=== PATIENT | female | born 1985 | race Caucasian/White ===

== ENCOUNTER 2022-04-19 05:35 | Inpatient (IN) ==
--- NOTE | 2022-04-11 12:31 | Anesthesiology Consultation ---
Date of Service April 11, 2022 Assessment & Plan (1) Encounter for pre-operative examination: - COVID screening: Per political reporter on 04/11/2022: Travel screen negative, no known COVID-19 positive contacts or current COVID-19 related symptoms in past 2 weeks. Pt vaccinated. To surgeon's discretion if pre-op COVID testing needed. 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 History Surgery Operation Date: 04/19/22 09:00 Proposed Procedures p Section in LD (Delivery of Baby Through Abdominal Incision) - Deborah Aranda MD, FACOG Height/Weight Height: 5 ft 2 in Weight: 74.389 kg Allergies Allergy/AdvReac Type Severity Reaction Status Date / Time benzoyl peroxide Allergy HIVES Verified 04/11/22 10:43 bupropion Allergy ?HIVES Verified 04/11/22 10:43 Medications Home Medications Medication Instructions Recorded Confirmed Last Taken prenat.vits,vega,pmr-zmgs-akjtd 1 tab PO HS 04/03/21 04/11/22 Unknown breast pump #1 ea 10/24/21 04/11/22 Unknown aspirin 81 mg chewable tablet 81 mg PO HS 11/27/21 04/11/22 Unknown docusate sodium [Colace] 1 cap PO QAM PRN Constipation 01/21/22 04/11/22 Unknown diphenhydramine HCl 50 mg capsule 25 - 50 mg PO HS 04/11/22 04/11/22 Unknown (Unisom SleepGels) ferrous sulfate 325 mg (65 mg 325 mg PO Q2D 04/11/22 04/11/22 Unknown iron) tablet (iron) levothyroxine 50 mcg tablet 50 mcg PO HS 04/11/22 04/11/22 Unknown Past Medical History Medical History Gestational diabetes monitor blood sugars "haven't had any over 150" Hypothyroid during x 2 Past Family History Family History Grandmother (Paternal) Breast cancer Father Diabetes Denies family history of Ovarian cancer Gestational diabetes Colorectal cancer Uterine cancer Past Surgical History Surgical History Hx of rhinoplasty Previous section x 2 S/P LASIK surgery of both eyes Social History Smoking Status: Never smoker Do You Dip or Chew Tobacco: No Hx Alcohol Use: Yes ("not while ") Alcohol type: wine alcohol intake frequency: a few times a week Hx Substance Use: No substance use type: does not use Testing Laboratory Results 03/27/2022 WBC: 8.8 H/H: 12/39 PLATELETS: 167 SODIUM: 138 POTASSIUM: 4.5 CHLORIDE: 105 CO2: 21 BUN: 7 CREATININE: 0.7 GLUCOSE: 79
--- NOTE | 2022-04-18 15:52 | History & Physical Report ---
Date of Service April 18, 2022 Assessment & Plan (1) with 37 weeks completed gestation: (2) Previous delivery affecting , antepartum: (3) Supervision of elderly multigravida: Plan Plan repeat c/s for Thursday 04/19. The risks of surgery were discussed with the patient including anesthesia, bleeding, transfusion, damage to surrounding structures (bowel , bladder, vessels, nerves, ureters), need for further surgery, inability to repair uterus resulting in hyster, injury to the baby. Other risks of heart attack, blood clot, stroke discussed. Consent reviewed and signed. History of Present Illness Chief Complaint: presents for repeat c/s Primary Care Provider: NO PCP Patient is a 37yowf Wtih iup at 37 4/7 weeks who presents to labor and delivery for repeat . Has repeat early because of MD concern at her last delivery of thin regino and recommended she be delivered around 37 weeks. This was confirmed by evaluation by MFM this . The has been essentially uncomplicated. Operative report notes adhesions between muscle and fascia , a bulging and thin REGINO, extension in the cx toward the bladder and repaired in a single layer. Also had pet PP with need for readmission for Mag and was on labetolol for several weeks pp. She declines tubal ligation and in fact desires another . and Delivery Plans AMA *weekly NST's @ 36wks. Hx of Hypothroid *TFT's Q4wks. GDM *Begin monthly AC US % GBS Positive *Treat in labor Prior Section x2 affecting *after prior c/s was told should deliver at 37wks for ? uterine rupture *MFM consult- *HROBM: 37wk c/s. C/S SCHEDULED FOR 04/19/[address] ROTH AND DR. PETERS ASSIST NEEDS COVID TEST ON 04/17/2022-ORDERED Hx PPX Preeclampsia *Baseline labs-wnl *24hr urine-<115 Posterior Low Lying Placenta--> RESOLVED OB Labs: Blood Type O Positive 09/26/21 Antibody Screen NEGATIVE 09/26/21 Hemoglobin 11.6 g/dL (12.0-16.0) LB 02/14/22 Hematocrit 35.0 % (37-47) L 02/14/22 Mean Corpuscular Volume 87.8 fL (80-100) 09/26/21 Platelet Count 285 K/uL (130-400) 09/26/21 Rubella IgG Antibody Immune (Immune) 09/26/21 Rapid Plasma Reagin Nonreactive (Nonreactive) 09/26/21 Hepatitis B Surface Antigen Neg (Neg) 09/26/21 Hepatitis C Antibody Neg (Neg) 09/26/21 HIV (1&2) Ab and P24 Ag, 4th Gener Neg (Neg) 09/26/21 Glucose 1 Hour 50 gm Load 133 mg/dl (70-130) H 02/14/22 Maternal Serum Alpha Fetoprotein 51.2 ng/mL 11/21/21 OB Optional Labs: Chlamydia trachomatis RNA NOT DETECTED (NOT DETECTED) 09/26/21 Neisseria gonorrhoeae RNA NOT DETECTED (NOT DETECTED) 09/26/21 Thyroid Stimulating Hormone (TSH) 1.985 uIu/ml (0.300-4.500) 02/14/22 Alpha Fetoprotein Triple Screen SEE NOTE 11/21/21 Labs Reviewed: csf/sma-negative--mln cfdna-low risk--mln afp neg GBS positive Allergies Allergy/AdvReac Type Severity Reaction Status Date / Time benzoyl peroxide Allergy HIVES Verified 04/16/22 10:06 bupropion Allergy ?HIVES Verified 04/16/22 10:06 Home Medications Medication Instructions Recorded Confirmed Type prenat.vits,vega,cul-croj-kspho 1 tab PO HS 04/03/21 04/16/22 History breast pump #1 ea 10/24/21 04/16/22 Rx aspirin 81 mg chewable tablet 81 mg PO HS 11/27/21 04/16/22 History docusate sodium [Colace] 1 cap PO QAM PRN Constipation 01/21/22 04/16/22 History diphenhydramine HCl 50 mg capsule 25 - 50 mg PO HS 04/11/22 04/16/22 History (Unisom SleepGels) ferrous sulfate 325 mg (65 mg 325 mg PO Q2D 04/11/22 04/16/22 History iron) tablet (iron) levothyroxine 50 mcg tablet 50 mcg PO HS 04/11/22 04/16/22 History Patient History Medical History Gestational diabetes monitor blood sugars "haven't had any over 150" Hypothyroid during x 2 Surgical History Hx of rhinoplasty Previous section x 2 S/P LASIK surgery of both eyes Family History Grandmother (Paternal) Breast cancer Father Diabetes Denies family history of Ovarian cancer Gestational diabetes Colorectal cancer Uterine cancer Social History (Updated 09/17/21 @ 13:12 by Karo Minaya) Smoking Status: Never smoker Second Hand Exposure: No; Hx Alcohol Use: Yes ("not while ") Alcohol type: wine Alcohol Intake Frequency: 2-3 x/Week Hx Substance Use: No Preferred Language: Belgian Communication Ability: Effective Disintegrator Required: No Beliefs That Will Affect Care: None marital status: marital status details: Issa (31) [phone] Current Living Situation: Spouse and Family Current Living Situation Comment: lives with spouse and children, no pets. 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 Date GA wks Lbr Lgth wt Sex Type del Anes Place Del Prov ? Comment 07/06/16 39 8lb M Epid ural Other [place] No failure to dilate 07/09/17 39 8lb 6oz M Spinal Other [place] No repeat c/s-- ppx preeclampsia Physical Exam Constitutional: WD/WN, vitals as above Neck: trachea midline, no thyromegaly Respiratory: normal respiratory effort, lungs clear to auscultation Cardiovascular: RRR, no murmur, no edema Gastrointestinal (Abdomen): soft, gravid, nt Psychiatric: A+Ox3, euthymic affect Coding Level of Care Code None Diagnoses with 37 weeks completed gestation Z3A.37 Previous delivery affecting , antepartum O34.219 Supervision of elderly multigravida O09.529
[2022-04-19] MEDS ORDERED: SODIUM CHLORIDE 0.9% 250 ML IV PRN (05:40)
[2022-04-19] MEDS ORDERED: LACTATED RINGER'S 1,000 ML IV SCH ×2 (05:45→09:30)
[2022-04-19] MEDS ORDERED: ceFAZolin 2000MG 2,000 MG/15 ML SYR IV SCH (06:00)
[2022-04-19 06:05] LABS: Basophils # (auto) 0.04 K/uL (0-0.2); Basophils % (auto) 0.4 %; Eosinophils # (auto) 0.08 K/uL (0-0.50); Eosinophils % (auto) 0.7 %; Hematocrit (blood only) 37.2 % (34.1-44.9); Hemoglobin 12.5 g/dl (12.0-16.0); Immature Granulocytes # (auto) 0.11 K/uL (0.00-0.02); Lymphocytes # (auto) 2.47 K/uL (1.2-3.4); Lymphocytes % (auto) 22.8 %; Mean Corpuscular Hemoglobin 29.2 pg (25.0-34.0); Mean Corpuscular Hgb Conc 33.6 g/dL (32.0-36.0); Mean Corpuscular Volume 86.9 fL (80.0-100.0); Mean Platelet Volume 12.5 fL (9.4-12.3); Monocytes # (auto) 0.93 K/uL (0.24-0.82); Monocytes % (auto) 8.6 %; Neutrophils # (auto) 7.18 K/uL (1.4-6.5); Neutrophils % (auto) 66.5 %; Platelet Count 110 K/uL (130-400); RDW Coefficient of Variation 16.6 % (11.5-14.5); RDW Standard Deviation 51.8 fL (36.4-46.3); Red Blood Count 4.28 M/uL (3.93-5.22); White Blood Count 10.81 K/ul (4.8-10.8)
[2022-04-19] MEDS ORDERED: CITRIC ACID/SODIUM CITRATE 15 ML UDC PO ONE (06:41)
[2022-04-19] MEDS ORDERED: fentaNYL citrate 100 MCG/2 ML VIAL ONE (07:19)
[2022-04-19] MEDS ORDERED: MoRPHine SULFATE PF 1 MG/ML 10 ML AMP/VIAL ONE (07:19)
[2022-04-19] MEDS ORDERED: KETOROLAC 30 MG/ML VIAL ONE (07:19)
[2022-04-19] MEDS ORDERED: ONDANSETRON INJ 2 MG/ML 2 ML VIAL ONE (07:19)
[2022-04-19] MEDS ORDERED: OXYTOCIN 10 UNITS/ML 10ML VIAL ONE (07:19)
[2022-04-19 07:57] LABS: Albumin Globulin Ratio 1.3 (0.9-2); Albumin Level 2.8 gm/dl (3.4-5.0); BUN Creatinine Ratio 13.6 (10-20); Bilirubin,Total 0.4 mg/dl (0.2-1.0); Calcium 8.4 mg/dl (8.5-10.1); Creatinine Clr Calc Pharmacy 84.7 ml/min; Est GFR (Non-African American) 84.5 ml/min; Globulin 2.1 gm/dl (2.5-4.0); Total Protein 4.9 gm/dl (6.0-8.3)
[2022-04-19] MEDS ORDERED: ACETAMINOPHEN 325 MG TAB PO PRN (08:11)
[2022-04-19] MEDS ORDERED: NALOXONE HCL 1 MG in SODIUM CHLORIDE 0.9% 1000ML 1,000 ML IV PRN (08:11)
[2022-04-19] MEDS ORDERED: HYDROmorphone INJ 0.5 MG/0.5 ML SYR IV PRN (08:11)
[2022-04-19] MEDS ORDERED: ONDANSETRON INJ 2 MG/ML 2 ML VIAL IV PRN (08:11)
[2022-04-19] MEDS ORDERED: NALOXONE HCL 0.4 MG/1 ML VIAL/CARP IV PRN (08:11)
[2022-04-19] MEDS ORDERED: diphenhydrAMINE 50 MG/ML VIAL IV PRN (08:11)
[2022-04-19] MEDS ORDERED: NALOXONE HCL 0.08 MG in SYRINGE 1.8 ML IV PRN (08:11)
[2022-04-19] MEDS ORDERED: NALBUPHINE HCL INJ 10 MG/ML AMP IV PRN (08:11)
[2022-04-19] MEDS ORDERED: MoRPHine SULFATE PF 1 MG/ML 10 ML AMP/VIAL INT SPINAL ONE (08:11)
[2022-04-19] MEDS ORDERED: LACTATED RINGER'S 500 ML IV PRN (08:11)
[2022-04-19] MEDS ORDERED: ePHEDrine sulfate 50 MG/ML AMP IV PRN (08:11)
[2022-04-19] MEDS ORDERED: NO NARCOTICS OR SEDATIVES SCH (08:15)
[2022-04-19] MEDS ORDERED: DC INTRASPINAL MORPHINE SCH (08:15)
[2022-04-19] MEDS ORDERED: SODIUM CHLORIDE 0.9% 1000ML 1,000 ML IV SCH (08:15)
[2022-04-19] MEDS ORDERED: HYDROCORTISONE ACETATE 25 MG SUPP PR PRN (08:46)
[2022-04-19] MEDS ORDERED: BENZOCAINE 20% AER SPR 82.5 GM CAN EXT PRN (08:46)
[2022-04-19] MEDS ORDERED: SENNA 8.6 MG TAB PO PRN (08:46)
[2022-04-19] MEDS ORDERED: DIPHTHERIA/TETANUS/PERTUSSIS 0.5 ML SYR/VIAL IM ONE (08:46)
[2022-04-19] MEDS ORDERED: MAGNESIUM HYDROXIDE SUSP 30 ML UDC PO PRN (08:46)
--- NOTE | 2022-04-19 08:57 | Operative Report ---
PG Post Operative Report Pre & Post Diagnosis Operation Date: 04/19/22 07:30 Pre-Op Diagnosis: at 37 4/7 History of Section x 2 hx of thin REGINO at last delivery and cervical extension. Post-Op Diagnosis: at 37 4/7 History of Section x 2 hx of thin REGINO at last delivery and cervical extension. I identified the patient and participated in the time-out.: Yes Procedure Operation Date: 04/19/22 07:30 Actual Procedures p Repeat lower transverse Section in LD (Delivery of Baby Through Abdominal Incision) live female child born at 0807 - Deborah Aranda MD, FACOG Surgeon Deborah Aranda MD, FACOG Wood Carving Machine Operator DR. Jesus Farooq, Dr. Molly Molina Estimated Blood Loss 400 Findings Consistent with Post-Op Diagnosis viable female , apgars 8/9. Nl uterus tubes and ovaries bilaterally. The lower uterine segment was thin but able to repair in two layers. Not bulging, no window. Fluids 1000cc ivf, 500cc uop Specimens placenta, cord segment Drains holden Anesthesia Type Spinal Complications none Disposition Accompanied Patient To Recovery: Yes Disposition: L&D Indications Patient is a 37yowf with iup at 37 4/7 weeks. Having repeat c/s early because last delivery there was a very thin regino and bulging regino with cervical extension. Decision made for early delivery for concern for potential rupture. Description of Procedure The patient was taken to the operating room where she was identified verbally and by bracelet. She was seated on the operating table where a spinal anesthetic was placed by anesthesia. She was then placed in the supine position with a leftward tilt. A Holden catheter was placed sterilely. The patient was prepped and draped in a normal standard fashion. The anesthetic was tested and found to be adequate. A time-out was held, identifying correct patient, procedure, positioning and preoperative antibiotics. There were no concerns. A Pfannenstiel skin incision was made with a knife and taken down to the underlying layer of fascia with the knife and Bovie electrocautery. Bleeding was attended to with the Bovie. The fascia was incised in the midline with the knife and taken out laterally with scissors. The superior edge of the fascial incision was grasped, elevated and the underlying layer of rectus muscle was taken off bluntly and with scissors. In a similar fashion, the inferior edge of the fascial incision was grasped, elevated and the underlying layer of rectus muscle was taken off bluntly and with scissors. The muscles were bluntly and sharply in the midline. The peritoneum was entered bluntly. The incision was then stretched. The bladder blade was placed. The vesicouterine peritoneum was identified, entered with scissors and taken out laterally with scissors. The bladder flap was created digitally A hysterotomy incision was scored with a knife and the incision was stretched superiorly and inferiorly with the automatic vulcanizing operator's fingers. The operators hand was placed into the incision and the head was delivered atraumatically. No nuchal cord. The nose and mouth were bulb suctioned. The rest of the was then delivered without difficulty. The nose and mouth were again bulb suctioned. The cord was clamped and cut and the infant was then handed off to the awaiting dowel inserting machine operator for drying and attention. Cord blood and segment were obtained. The placenta was expressed. The uterus was exteriorized and cleared of all clot and debris with moistened laparotomy sponges. The hysterotomy incision was repaired in two layers, the first in a running locked layer, the second in an imbricating layer. Hemostasis was noted to be good. Posterior cul-de-sac was cleared of all clot and debris. The hysterotomy incision was again inspected and found to be hemostatic. the uterus was reinteriorized. Hysterotomy incision was again inspected and found to be hemostatic. Rectus muscles were reapproximated with several interrupted stitches of 0 Vicryl. The fascia was then reapproximated with 0 Vicryl starting at the edges and meeting in the midline. The subcuticular tissues were copiously irrigated and bleeding was attended to with cautery. The skin was then closed with 4-0 Vicryl in a subcuti cular fashion. All sponge , lap and needle counts were correct x 2. The procedure was terminated and the patient was taken to the recovery room in stable condition. I attest to the content of the Intraoperative Record and any orders documented therein. Any exceptions are noted below. OB Procedure Charges 11825
[2022-04-19] MEDS: OXYTOCIN 20 UNITS in LACTATED RINGER'S 1,000 ML IV SCH ×2 (10:15→19:38)
--- NOTE | 2022-04-19 11:08 | Anesthesiology Progress Note ---
Date of Service April 19, 2022 Anesthesia Post Procedure Vital Signs Vital Signs: Temp Pulse Resp BP Pulse Ox 04/19/22 10:29 54 L 97 04/19/22 10:24 51 L 04/19/22 10:24 54 L 150/86 H 98 04/19/22 10:19 50 L 98 04/19/22 10:14 53 L 138/79 98 04/19/22 10:09 54 L 97 04/19/22 10:05 61 145/82 H 04/19/22 10:04 60 98 04/19/22 09:59 58 L 98 04/19/22 09:55 53 L 146/79 H 04/19/22 09:54 55 L 97 04/19/22 09:49 59 L 98 04/19/22 09:45 60 135/80 04/19/22 09:44 61 98 04/19/22 09:39 67 98 04/19/22 09:35 55 L 148/82 H 04/19/22 09:34 61 98 04/19/22 09:29 57 L 100 04/19/22 09:25 58 L 132/86 04/19/22 09:24 56 L 100 04/19/22 09:19 58 L 99 04/19/22 09:15 58 L 136/76 04/19/22 09:14 58 L 99 04/19/22 09:09 53 L 100 04/19/22 09:05 55 L 133/75 04/19/22 09:04 64 98 04/19/22 08:59 61 98 04/19/22 08:55 58 L 125/73 04/19/22 08:54 62 99 04/19/22 08:49 60 98 04/19/22 08:44 60 96 04/19/22 08:41 65 93 04/19/22 08:40 64 116/57 L 04/19/22 07:13 65 166/88 H 04/19/22 06:44 62 168/95 H 04/19/22 06:28 66 167/89 H 04/19/22 05:45 69 173/97 H 04/19/22 05:49 98.1 F 18 Transfer of Care Handoff Completed per policy Notes Mental Status: alert / awake / arousable and participated in evaluation Patient Amnestic to Procedure: Yes Nausea / Vomiting: adequately controlled Pain: adequately controlled Airway Patency, RR, SpO2: stable & adequate BP & HR: stable & adequate Hydration State: stable & adequate Neuraxial Anesthesia: was administered and sensory block is resolving Anesthetic Complications: no major complications apparent and Pt Satisfied with anesthetic care
[2022-04-19] MEDS: SIMETHICONE 80 MG CHEW PO SCH ×3 (14:39→21:28)
[2022-04-19] MEDS: KETOROLAC 30 MG/ML VIAL IV PRN ×2 (14:40→21:28)
[2022-04-19] MEDS ORDERED: LABETALOL HCL IV 5 MG/ML 20ML IV STA (17:43)
[2022-04-19] MEDS ORDERED: LABETALOL HCL IV 5 MG/ML 20ML IV ONE (17:48)
[2022-04-19] MEDS ORDERED: MAG SULFATE 6GM BOLUS FROM BAG IV ONE (17:50)
--- NOTE | 2022-04-19 17:56 | Obstetrical Progress Note ---
Date of Service April 19, 2022 Assessment & Plan (1) Severe pre-eclampsia: Plan: Nancie is a 37-year-old day 0 status post Caesarean section performed for gestational hypertension. Patient has noted has severe range blood pressures. Denies any preeclampsia symptoms. Normal preeclampsia labs several hours ago. Discussed the diagnosis of severe preeclampsia for severe range blood pressures. Will treat with labetalol 20 mg IV once. Will start magnesium for seizure prophylaxis. Discussed additional treatment for blood pressure as needed. Questions answered patient's satisfaction. Admission and Anticipated Discharge Date Admission Date: April 19, 2022 Subjective presented for evaluation secondary to severe range blood pressures. Patient is denying any preeclampsia symptoms. Patient has had severe range blood pressures for the past 3-4 readings. I discussed the blood pressure findings with the patient discussed the recommendation for acute treatment for blood pressure as well as the recommendation for magnesium for seizure prophylaxis secondary to severe preeclampsia. I discussed the diagnosis in detail answered questions patient's satisfaction. Patient had preeclampsia with a prior as well. Patient had normal liver enzymes, creatinine and CBC shortly after delivery. Results & Data ([facility]) Vital Signs (Past 12 Hours) Vital Signs Temp Pulse Pulse Resp BP BP Pulse Ox 04/19/22 17:00 18 99 04/19/22 17:00 56 L 18 166/97 H 04/19/22 13:35 18 100 04/19/22 16:15 18 100 04/19/22 16:15 36.6 C 56 L 18 170/106 H 04/19/22 14:05 18 97 04/19/22 11:00 18 97 04/19/22 10:45 18 97 04/19/22 12:45 18 97 04/19/22 12:45 36.4 C L 57 L 18 145/89 H 04/19/22 10:45 36.4 C L 55 L 18 143/87 H 97 04/19/22 17:48 62 04/19/22 17:48 185/104 H 04/19/22 10:29 54 L 97 04/19/22 10:24 51 L 04/19/22 10:24 54 L 150/86 H 98 04/19/22 10:19 50 L 98 04/19/22 10:14 53 L 138/79 98 04/19/22 10:09 54 L 97 04/19/22 10:05 61 145/82 H 04/19/22 10:04 60 98 04/19/22 09:59 58 L 98 04/19/22 09:55 53 L 146/79 H 04/19/22 09:54 55 L 97 04/19/22 09:49 59 L 98 04/19/22 09:45 60 135/80 04/19/22 09:44 61 98 04/19/22 09:39 67 98 04/19/22 09:35 55 L 148/82 H 04/19/22 09:34 61 98 04/19/22 09:29 57 L 100 04/19/22 09:25 58 L 132/86 04/19/22 09:24 56 L 100 04/19/22 09:19 58 L 99 04/19/22 09:15 58 L 136/76 04/19/22 09:14 58 L 99 04/19/22 09:09 53 L 100 04/19/22 09:05 55 L 133/75 04/19/22 09:04 64 98 04/19/22 08:59 61 98 04/19/22 08:55 58 L 125/73 04/19/22 08:54 62 99 04/19/22 08:49 60 98 04/19/22 08:44 60 96 04/19/22 08:41 65 93 04/19/22 08:40 64 116/57 L 04/19/22 07:13 65 166/88 H 04/19/22 06:44 62 168/95 H 04/19/22 06:28 66 167/89 H O2 Del Method 04/19/22 17:00 04/19/22 17:00 Room Air 04/19/22 13:35 04/19/22 16:15 04/19/22 16:15 Room Air 04/19/22 14:05 04/19/22 11:00 04/19/22 10:45 04/19/22 12:45 04/19/22 12:45 Room Air 04/19/22 10:45 Room Air 04/19/22 17:48 04/19/22 17:48 04/19/22 10:29 04/19/22 10:24 04/19/22 10:24 04/19/22 10:19 04/19/22 10:14 04/19/22 10:09 04/19/22 10:05 04/19/22 10:04 04/19/22 09:59 04/19/22 09:55 04/19/22 09:54 04/19/22 09:49 04/19/22 09:45 04/19/22 09:44 04/19/22 09:39 04/19/22 09:35 04/19/22 09:34 04/19/22 09:29 04/19/22 09:25 04/19/22 09:24 04/19/22 09:19 04/19/22 09:15 04/19/22 09:14 04/19/22 09:09 04/19/22 09:05 04/19/22 09:04 04/19/22 08:59 04/19/22 08:55 04/19/22 08:54 04/19/22 08:49 04/19/22 08:44 04/19/22 08:41 04/19/22 08:40 04/19/22 07:13 04/19/22 06:44 04/19/22 06:28 PG Care Time/CCT Total # of Minutes Spent Total Time Spent with Patient: Total time spent is greater than 50% in coordination of care (as documented) at patient's floor/unit and/or counseling patient: Coding Level of Care Code None Diagnoses Severe pre-eclampsia O14.10
[2022-04-19] MEDS ORDERED: MAGNESIUM SULFATE / WTR 40 GM/1,000 ML BAG IV SCH (18:00)
[2022-04-19] MEDS: DOCUSATE SODIUM 100 MG CAP PO SCH (21:28)
[2022-04-20] MEDS ORDERED: diphenhydrAMINE 50 MG/ML VIAL IV PRN (02:12)
[2022-04-20] MEDS ORDERED: KETOROLAC 30 MG/ML VIAL IV PRN (02:12)
[2022-04-20] MEDS ORDERED: MEPERIDINE HCL 50 MG/ML CARP IV PRN (02:12)
[2022-04-20] MEDS ORDERED: ONDANSETRON INJ 2 MG/ML 2 ML VIAL IV PRN (02:12)
[2022-04-20] MEDS ORDERED: diphenhydrAMINE Capsule 25 MG CAP PO PRN (02:12)
[2022-04-20] MEDS ORDERED: PROMETHAZINE HCL 25 MG in SODIUM CHLORIDE 0.9% 50 ML IV PRN (02:12)
[2022-04-20] MEDS: IBUPROFEN 600 MG TAB PO PRN ×3 (04:51→21:16)
[2022-04-20] MEDS: oxyCODONE/ACETAMINOPHEN 5mg/325mg TAB PO PRN ×3 (04:51→21:15)
[2022-04-20 06:43] LABS: Basophils # (auto) 0.03 K/uL (0-0.2); Basophils % (auto) 0.3 %; Eosinophils # (auto) 0.05 K/uL (0-0.50); Eosinophils % (auto) 0.4 %; Hematocrit (blood only) 40.1 % (34.1-44.9); Hemoglobin 13.5 g/dl (12.0-16.0); Immature Granulocytes # (auto) 0.06 K/uL (0.00-0.02); Immature Granulocytes % (auto) 0.5 %; Lymphocytes # (auto) 1.58 K/uL (1.2-3.4); Lymphocytes % (auto) 14.1 %; Mean Corpuscular Hemoglobin 29.6 pg (25.0-34.0); Mean Corpuscular Hgb Conc 33.7 g/dL (32.0-36.0); Mean Corpuscular Volume 87.9 fL (80.0-100.0); Mean Platelet Volume 12.6 fL (9.4-12.3); Monocytes # (auto) 0.74 K/uL (0.24-0.82); Monocytes % (auto) 6.6 %; Neutrophils # (auto) 8.74 K/uL (1.4-6.5); Neutrophils % (auto) 78.1 %; Platelet Count 120 K/uL (130-400); RDW Coefficient of Variation 16.6 % (11.5-14.5); RDW Standard Deviation 52.4 fL (36.4-46.3); Red Blood Count 4.56 M/uL (3.93-5.22)
--- NOTE | 2022-04-20 07:54 | Obstetrical Progress Note ---
Date of Service April 20, 2022 Assessment & Plan (1) Encounter for care and examination after delivery: POD1 s/p repeat c/s GBS + RI. Rh+ Patient was having severely high BP now normal after labetalol. Mg drip was d/c Encourage ambulation Subjective Ambulation: limited ambulation Voiding: no voiding problems Passing Gas:: Yes Diet Tolerance:: regular diet Lochia:: Small Feeding Type:: breast feeding Physical Exam Constitutional WD/WN, vitals as above Respiratory no increased work of breathing Cardiovascular clinically well perfused Gastrointestinal (Abdomen) normal bowel sounds, soft, nontender, no hepatosplenomegaly c/d/i no strike through uterine fundus firm at 1 cm below the level of the umbilicus Psychiatric A+Ox3, euthymic affect Results & Data ([facility]) Vital Signs (Past 12 Hours) Vital Signs Temp Pulse Resp BP Pulse Ox O2 Del Method 04/20/22 07:00 16 04/20/22 07:00 Room Air 04/20/22 07:00 36.7 C 16 04/20/22 06:30 18 04/20/22 06:30 16 04/20/22 05:35 16 04/20/22 04:45 36.6 C 16 04/20/22 04:45 16 04/20/22 04:45 Room Air 04/20/22 03:20 18 04/20/22 03:20 18 04/20/22 02:00 16 04/20/22 02:00 16 04/20/22 01:01 16 04/20/22 00:00 16 04/20/22 00:00 16 04/19/22 23:10 16 04/19/22 23:10 36.6 C 16 04/19/22 23:10 16 04/19/22 22:00 16 04/19/22 22:01 16 04/19/22 21:00 16 04/19/22 21:00 16 04/19/22 20:00 16 04/19/22 20:00 16 04/20/22 07:48 74 04/20/22 07:43 89 04/20/22 07:38 77 94 04/20/22 07:33 71 04/20/22 07:28 74 96 04/20/22 07:26 74 135/78 04/20/22 07:23 77 96 04/20/22 07:18 73 95 04/20/22 07:13 74 95 04/20/22 07:08 82 98 04/20/22 07:03 91 H 98 04/20/22 06:58 76 95 04/20/22 06:53 78 96 04/20/22 06:48 77 97 04/20/22 06:43 77 97 04/20/22 06:38 76 97 04/20/22 06:33 85 97 04/20/22 06:28 88 98 04/20/22 06:26 76 125/77 04/20/22 06:23 75 95 04/20/22 06:18 77 96 04/20/22 06:13 74 96 04/20/22 06:08 72 96 04/20/22 06:03 77 96 04/20/22 05:58 73 97 04/20/22 05:53 72 96 04/20/22 05:48 75 97 04/20/22 05:43 73 97 04/20/22 05:38 74 96 04/20/22 05:33 74 97 04/20/22 05:28 75 96 04/20/22 05:26 77 127/75 04/20/22 05:23 76 95 04/20/22 05:18 81 96 04/20/22 05:13 69 95 04/20/22 05:10 72 90 04/20/22 05:08 72 94 04/20/22 05:03 81 97 04/20/22 04:58 69 96 04/20/22 04:53 72 98 04/20/22 04:48 71 97 04/20/22 04:43 78 98 04/20/22 04:38 83 98 04/20/22 04:33 72 96 04/20/22 04:28 72 95 04/20/22 04:26 75 126/78 04/20/22 04:23 74 95 04/20/22 04:18 72 95 04/20/22 04:13 86 97 04/20/22 04:08 77 97 04/20/22 04:03 73 95 04/20/22 03:58 80 96 04/20/22 03:53 78 96 04/20/22 03:48 73 95 04/20/22 03:43 71 97 04/20/22 03:38 71 96 04/20/22 03:33 82 97 04/20/22 03:28 77 95 04/20/22 03:26 75 123/75 04/20/22 03:23 77 95 04/20/22 03:18 74 95 04/20/22 03:13 76 95 04/20/22 03:08 75 95 04/20/22 03:03 77 94 04/20/22 02:58 79 95 04/20/22 02:53 79 95 04/20/22 02:48 74 96 04/20/22 02:43 76 96 04/20/22 02:38 76 97 04/20/22 02:33 76 96 04/20/22 02:28 71 97 04/20/22 02:26 71 139/82 04/20/22 02:23 72 96 04/20/22 02:18 87 97 04/20/22 02:13 72 96 04/20/22 02:08 71 95 04/20/22 02:03 76 96 04/20/22 01:58 68 95 04/20/22 01:53 70 96 04/20/22 01:48 69 94 04/20/22 01:43 70 95 04/20/22 01:38 78 96 04/20/22 01:33 72 94 04/20/22 01:28 70 95 04/20/22 01:26 68 123/76 04/20/22 01:23 69 94 04/20/22 01:18 76 96 04/20/22 01:13 71 91 04/20/22 01:08 68 95 04/20/22 01:03 69 94 04/20/22 00:58 70 94 04/20/22 00:53 66 94 04/20/22 00:48 78 95 04/20/22 00:43 68 94 04/20/22 00:38 65 95 04/20/22 00:33 68 94 04/20/22 00:28 69 95 04/20/22 00:26 69 120/74 04/20/22 00:23 69 94 04/20/22 00:18 67 93 04/20/22 00:13 72 94 04/20/22 00:08 69 93 04/20/22 00:03 69 94 04/19/22 23:58 93 04/19/22 23:58 70 04/19/22 23:57 90 04/19/22 23:57 72 04/19/22 23:53 93 04/19/22 23:53 70 04/19/22 23:48 95 04/19/22 23:48 70 04/19/22 23:43 95 04/19/22 23:43 74 04/19/22 23:38 94 04/19/22 23:38 72 04/19/22 23:33 93 04/19/22 23:33 67 04/19/22 23:28 96 04/19/22 23:28 75 04/19/22 23:25 70 04/19/22 23:25 125/74 04/19/22 23:23 94 04/19/22 23:23 70 04/19/22 23:18 96 04/19/22 23:18 71 04/19/22 23:19 72 04/19/22 23:19 116/67 04/19/22 23:13 95 04/19/22 23:13 75 04/19/22 23:11 94 04/19/22 23:11 73 04/19/22 23:08 95 04/19/22 23:08 78 04/19/22 23:06 94 04/19/22 23:06 75 04/19/22 23:03 94 04/19/22 23:03 72 04/19/22 23:00 94 04/19/22 23:00 72 04/19/22 22:58 93 04/19/22 22:58 78 04/19/22 22:55 94 04/19/22 22:55 74 04/19/22 22:53 94 04/19/22 22:53 70 04/19/22 22:50 94 04/19/22 22:50 70 04/19/22 22:48 94 04/19/22 22:48 70 04/19/22 22:49 69 04/19/22 22:49 125/70 04/19/22 22:45 94 04/19/22 22:45 74 04/19/22 22:43 94 04/19/22 22:43 73 04/19/22 22:39 94 04/19/22 22:39 74 04/19/22 22:38 95 04/19/22 22:38 75 04/19/22 22:33 96 04/19/22 22:33 76 04/19/22 22:32 94 04/19/22 22:32 76 04/19/22 22:28 96 04/19/22 22:28 74 04/19/22 22:23 96 04/19/22 22:23 72 04/19/22 22:18 96 04/19/22 22:18 77 04/19/22 22:13 97 04/19/22 22:13 81 04/19/22 22:08 97 04/19/22 22:08 81 04/19/22 22:03 99 04/19/22 22:03 83 04/19/22 21:58 97 04/19/22 21:58 73 04/19/22 21:53 100 04/19/22 21:53 74 04/19/22 21:48 99 04/19/22 21:48 72 04/19/22 21:48 72 04/19/22 21:48 143/77 H 04/19/22 21:43 99 04/19/22 21:43 75 04/19/22 21:38 100 04/19/22 21:38 75 04/19/22 21:33 99 04/19/22 21:33 78 04/19/22 21:33 137/76 04/19/22 21:28 100 04/19/22 21:28 71 04/19/22 21:23 100 04/19/22 21:23 75 04/19/22 21:18 99 04/19/22 21:18 71 04/19/22 21:18 69 04/19/22 21:18 134/82 04/19/22 21:13 99 04/19/22 21:13 71 04/19/22 21:08 98 04/19/22 21:08 87 04/19/22 21:03 98 04/19/22 21:03 84 04/19/22 21:03 129/76 04/19/22 20:58 99 04/19/22 20:58 80 04/19/22 20:53 97 04/19/22 20:53 68 04/19/22 20:48 96 04/19/22 20:48 67 04/19/22 20:48 66 04/19/22 20:48 132/76 04/19/22 20:43 98 04/19/22 20:43 72 04/19/22 20:38 98 04/19/22 20:38 75 04/19/22 20:33 97 04/19/22 20:33 73 04/19/22 20:33 128/76 04/19/22 20:28 98 04/19/22 20:28 69 04/19/22 20:23 98 04/19/22 20:23 74 04/19/22 20:18 97 04/19/22 20:18 72 04/19/22 20:18 70 04/19/22 20:18 128/77 04/19/22 20:13 98 04/19/22 20:13 74 04/19/22 20:08 98 04/19/22 20:08 73 04/19/22 20:03 72 04/19/22 20:03 137/79
--- NOTE | 2022-04-20 08:01 | Obstetrical Progress Note ---
Date of Service April 20, 2022 Assessment & Plan (1) Encounter for care and examination after delivery: Nancie is a 37-year-old day 1 status post Caesarean section. Patient on magnesium for severe preeclampsia has completed 12 hours of magnesium at this point. Patient's blood pressures have been normal range. She is diuresing well with nearly 5 L of urine output over night. Patient denies any preeclampsia symptoms of labs have been normal. Discussed discontinuation of the Mag at 12hrs versus continued for the full 24hrs. As patient is doing well with normal blood pressures and good diuresis I am comfortable allowing the patient come off at 12hrs which patient was agreeable with. Will continue to monitor. Patient is not currently on any oral hypertensive medications is only received 1 dose of IV antihypertensive yesterday late afternoon. patient doing well otherwise without any significant concerns. (2) Severe pre-eclampsia: Subjective Ambulation: ambulating normally Voiding: no voiding problems Passing Gas:: Yes Diet Tolerance:: regular diet Lochia:: Small day 1 status post Caesarean section complicated by severe preeclampsia currently on Mag at time of evaluation. Patient denies any preeclampsia symptoms reports that she is feeling well. Physical Exam Constitutional WD/WN, vitals as above Respiratory normal respiratory effort; no respiratory distress and no labored breathing Gastrointestinal (Abdomen) Inspection/Auscultation: abdomen normal to inspection; abdomen not distended Percussion/Palpation: abdomen soft; abdomen nontender, no guarding and abdomen not rigid Incision clean dry and intact. mild strike through Genitourinary OB Exam Abdomen: + fundal height Fundus: + firm and + relation to umbilicus (Below); not tender or not boggy Results & Data ([facility]) Vital Signs (Past 12 Hours) Vital Signs Temp Pulse Resp BP Pulse Ox O2 Del Method 04/20/22 07:00 16 04/20/22 07:00 Room Air 04/20/22 07:00 36.7 C 04/20/22 06:30 18 04/20/22 06:30 16 04/20/22 05:35 16 04/20/22 04:45 36.6 C 04/20/22 04:45 16 04/20/22 04:45 Room Air 04/20/22 03:20 18 04/20/22 03:20 18 04/20/22 02:00 16 04/20/22 02:00 16 04/20/22 01:01 16 94 04/20/22 00:00 16 95 04/20/22 00:00 16 04/19/22 23:10 16 95 04/19/22 23:10 36.6 C 16 95 04/19/22 23:10 16 04/19/22 22:00 16 99 04/19/22 22:01 16 04/19/22 21:00 16 99 04/19/22 21:00 16 04/19/22 20:00 16 99 04/19/22 20:00 16 04/20/22 07:58 81 98 04/20/22 07:53 81 97 04/20/22 07:48 74 95 04/20/22 07:43 89 95 04/20/22 07:38 77 94 04/20/22 07:33 71 95 04/20/22 07:28 74 96 04/20/22 07:26 74 135/78 04/20/22 07:23 77 96 04/20/22 07:18 73 95 04/20/22 07:13 74 95 04/20/22 07:08 82 98 04/20/22 07:03 91 H 98 04/20/22 06:58 76 95 04/20/22 06:53 78 96 04/20/22 06:48 77 97 04/20/22 06:43 77 97 04/20/22 06:38 76 97 04/20/22 06:33 85 97 04/20/22 06:28 88 98 04/20/22 06:26 76 125/77 04/20/22 06:23 75 95 04/20/22 06:18 77 96 04/20/22 06:13 74 96 04/20/22 06:08 72 96 04/20/22 06:03 77 96 04/20/22 05:58 73 97 04/20/22 05:53 72 96 04/20/22 05:48 75 97 04/20/22 05:43 73 97 04/20/22 05:38 74 96 04/20/22 05:33 74 97 04/20/22 05:28 75 96 04/20/22 05:26 77 127/75 04/20/22 05:23 76 95 04/20/22 05:18 81 96 04/20/22 05:13 69 95 04/20/22 05:10 72 90 04/20/22 05:08 72 94 04/20/22 05:03 81 97 04/20/22 04:58 69 96 04/20/22 04:53 72 98 04/20/22 04:48 71 97 04/20/22 04:43 78 98 04/20/22 04:38 83 98 04/20/22 04:33 72 96 04/20/22 04:28 72 95 04/20/22 04:26 75 126/78 04/20/22 04:23 74 95 04/20/22 04:18 72 95 04/20/22 04:13 86 97 04/20/22 04:08 77 97 04/20/22 04:03 73 95 04/20/22 03:58 80 96 04/20/22 03:53 78 96 04/20/22 03:48 73 95 04/20/22 03:43 71 97 04/20/22 03:38 71 96 04/20/22 03:33 82 97 04/20/22 03:28 77 95 04/20/22 03:26 75 123/75 04/20/22 03:23 77 95 04/20/22 03:18 74 95 04/20/22 03:13 76 95 04/20/22 03:08 75 95 04/20/22 03:03 77 94 04/20/22 02:58 79 95 04/20/22 02:53 79 95 04/20/22 02:48 74 96 04/20/22 02:43 76 96 04/20/22 02:38 76 97 04/20/22 02:33 76 96 04/20/22 02:28 71 97 04/20/22 02:26 71 139/82 04/20/22 02:23 72 96 04/20/22 02:18 87 97 04/20/22 02:13 72 96 04/20/22 02:08 71 95 04/20/22 02:03 76 96 04/20/22 01:58 68 95 04/20/22 01:53 70 96 04/20/22 01:48 69 94 04/20/22 01:43 70 95 04/20/22 01:38 78 96 04/20/22 01:33 72 94 04/20/22 01:28 70 95 04/20/22 01:26 68 123/76 04/20/22 01:23 69 94 04/20/22 01:18 76 96 04/20/22 01:13 71 91 04/20/22 01:08 68 95 04/20/22 01:03 69 94 04/20/22 00:58 70 94 04/20/22 00:53 66 94 04/20/22 00:48 78 95 04/20/22 00:43 68 94 04/20/22 00:38 65 95 04/20/22 00:33 68 94 04/20/22 00:28 69 95 04/20/22 00:26 69 120/74 04/20/22 00:23 69 94 04/20/22 00:18 67 93 04/20/22 00:13 72 94 04/20/22 00:08 69 93 04/20/22 00:03 69 94 04/19/22 23:58 93 04/19/22 23:58 70 04/19/22 23:57 90 04/19/22 23:57 72 04/19/22 23:53 93 04/19/22 23:53 70 04/19/22 23:48 95 04/19/22 23:48 70 04/19/22 23:43 95 04/19/22 23:43 74 04/19/22 23:38 94 04/19/22 23:38 72 04/19/22 23:33 93 04/19/22 23:33 67 04/19/22 23:28 96 04/19/22 23:28 75 04/19/22 23:25 70 04/19/22 23:25 125/74 04/19/22 23:23 94 04/19/22 23:23 70 04/19/22 23:18 96 04/19/22 23:18 71 04/19/22 23:19 72 04/19/22 23:19 116/67 04/19/22 23:13 95 04/19/22 23:13 75 04/19/22 23:11 94 04/19/22 23:11 73 04/19/22 23:08 95 04/19/22 23:08 78 04/19/22 23:06 94 04/19/22 23:06 75 04/19/22 23:03 94 04/19/22 23:03 72 04/19/22 23:00 94 04/19/22 23:00 72 04/19/22 22:58 93 04/19/22 22:58 78 04/19/22 22:55 94 04/19/22 22:55 74 04/19/22 22:53 94 04/19/22 22:53 70 04/19/22 22:50 94 04/19/22 22:50 70 04/19/22 22:48 94 04/19/22 22:48 70 04/19/22 22:49 69 04/19/22 22:49 125/70 04/19/22 22:45 94 04/19/22 22:45 74 04/19/22 22:43 94 04/19/22 22:43 73 04/19/22 22:39 94 04/19/22 22:39 74 04/19/22 22:38 95 04/19/22 22:38 75 04/19/22 22:33 96 04/19/22 22:33 76 04/19/22 22:32 94 04/19/22 22:32 76 04/19/22 22:28 96 04/19/22 22:28 74 04/19/22 22:23 96 04/19/22 22:23 72 04/19/22 22:18 96 04/19/22 22:18 77 04/19/22 22:13 97 04/19/22 22:13 81 04/19/22 22:08 97 04/19/22 22:08 81 04/19/22 22:03 99 04/19/22 22:03 83 04/19/22 21:58 97 04/19/22 21:58 73 04/19/22 21:53 100 04/19/22 21:53 74 04/19/22 21:48 99 04/19/22 21:48 72 04/19/22 21:48 72 04/19/22 21:48 143/77 H 04/19/22 21:43 99 04/19/22 21:43 75 04/19/22 21:38 100 04/19/22 21:38 75 04/19/22 21:33 99 04/19/22 21:33 78 04/19/22 21:33 137/76 04/19/22 21:28 100 04/19/22 21:28 71 04/19/22 21:23 100 04/19/22 21:23 75 04/19/22 21:18 99 04/19/22 21:18 71 04/19/22 21:18 69 04/19/22 21:18 134/82 04/19/22 21:13 99 04/19/22 21:13 71 04/19/22 21:08 98 04/19/22 21:08 87 04/19/22 21:03 98 04/19/22 21:03 84 04/19/22 21:03 129/76 04/19/22 20:58 99 04/19/22 20:58 80 04/19/22 20:53 97 04/19/22 20:53 68 04/19/22 20:48 96 04/19/22 20:48 67 04/19/22 20:48 66 04/19/22 20:48 132/76 04/19/22 20:43 98 04/19/22 20:43 72 04/19/22 20:38 98 04/19/22 20:38 75 04/19/22 20:33 97 04/19/22 20:33 73 04/19/22 20:33 128/76 04/19/22 20:28 98 04/19/22 20:28 69 04/19/22 20:23 98 04/19/22 20:23 74 04/19/22 20:18 97 04/19/22 20:18 72 04/19/22 20:18 70 04/19/22 20:18 128/77 04/19/22 20:13 98 04/19/22 20:13 74 04/19/22 20:08 98 04/19/22 20:08 73 04/19/22 20:03 72 04/19/22 20:03 137/79
[2022-04-20] MEDS: FERROUS SULFATE 325 MG TAB PO SCH (08:18)
[2022-04-20] MEDS: SIMETHICONE 80 MG CHEW PO SCH ×4 (08:19→21:16)
[2022-04-20] MEDS: DOCUSATE SODIUM 100 MG CAP PO SCH ×2 (08:19→21:16)
[2022-04-20] MEDS: PRENATAL VITAMIN 1 TAB PO SCH (08:19)
--- NOTE | 2022-04-20 11:19 | Communication Note ---
Date of Service: April 20, 2022 Dexter called to make me aware of the patient's blood pressures. At 8am was 157/86, at 10 am 153/99, at 11 am 157/98. Patient continues to be asymptomatic. She has +2 reflexes and 2 beats of clonus per nursing. Labs have been normal. Will need antihypertensives it appears. Will start labetolol 100mg bid with first dose now. Do not feel need to restart Mag as blood pressures are not in a severe range. Will continue to monitor closely.
[2022-04-20] MEDS ORDERED: LABETALOL HCL 100 MG TAB PO SCH (11:30)
[2022-04-20] MEDS ORDERED: LABETALOL HCL 100 MG TAB PO ONE (15:19)
[2022-04-20] MEDS ORDERED: bisacodyL 5 MG TABEC PO SCH (20:00)
[2022-04-20] MEDS: LABETALOL HCL 200 MG TAB PO SCH (21:16)
[2022-04-21 06:46] LABS: Hematocrit (blood only) 36.1 % (34.1-44.9)
[2022-04-21] MEDS: IBUPROFEN 600 MG TAB PO PRN ×2 (07:09→14:32)
--- NOTE | 2022-04-21 07:48 | Obstetrical Progress Note ---
Date of Service April 21, 2022 Assessment & Plan (1) Encounter for care and examination after delivery: (2) Severe pre-eclampsia: Plan Patient's pressures are improved on 200mg labatolol. She has no s/s of pet. Doing well postop day 2. Continued routine care. Discussed that want to watch pressures through the day and that if we make medication adjustments, may need to stay until tomorrow. Would not leave before this evening. Mag only for 12 hours so off now for 24. Day #:: 2 Subjective Ambulation: ambulating normally Voiding: no voiding problems Passing Gas:: Yes Diet Tolerance:: regular diet (no n/v) Lochia:: Small Feeding Type:: breast feeding Patient noting cramping of the uterus, taking motrin with no problem. Patient denies s/s of pet. She is currently on 200mg labatolol and pressures are much improved. 120s-130s/70-80s. h/h stable. Physical Exam Constitutional WD/WN, vitals as above Respiratory normal respiratory effort, lungs clear to auscultation Cardiovascular RRR, no murmur, no edema Extremities: + edema (+1-2, softer); no calf tenderness Gastrointestinal (Abdomen) soft, nt, nd, +BS INcision c/d/i ff/appro tender at u Neurologic patellar DTR's 2+ bilat, sensation intact (no clonus) Psychiatric A+Ox3, euthymic affect Results & Data ([facility]) Vital Signs (Past 12 Hours) Vital Signs Temp Pulse Resp BP Pulse Ox O2 Del Method 04/21/22 04:01 63 16 123/74 04/21/22 00:03 36.9 C 67 16 126/76 97 Room Air
[2022-04-21] MEDS: SIMETHICONE 80 MG CHEW PO SCH ×4 (08:03→19:41)
[2022-04-21] MEDS: DOCUSATE SODIUM 100 MG CAP PO SCH ×3 (08:03→19:42)
[2022-04-21] MEDS: FERROUS SULFATE 325 MG TAB PO SCH (08:03)
[2022-04-21] MEDS: PRENATAL VITAMIN 1 TAB PO SCH (08:03)
[2022-04-21] MEDS: LABETALOL HCL 200 MG TAB PO SCH ×3 (08:04→22:38)
[2022-04-21] MEDS ORDERED: bisacodyL 10 MG SUPP PR PRN (08:47)
[2022-04-21] MEDS: oxyCODONE/ACETAMINOPHEN 5mg/325mg TAB PO PRN ×2 (10:50→19:41)
[2022-04-22] MEDS: oxyCODONE/ACETAMINOPHEN 5mg/325mg TAB PO PRN (02:29)
[2022-04-22] MEDS: FERROUS SULFATE 325 MG TAB PO SCH (08:00)
[2022-04-22] MEDS: PRENATAL VITAMIN 1 TAB PO SCH (08:00)
[2022-04-22] MEDS: IBUPROFEN 600 MG TAB PO PRN (08:00)
[2022-04-22] MEDS: DOCUSATE SODIUM 100 MG CAP PO SCH (08:00)
[2022-04-22] MEDS: SIMETHICONE 80 MG CHEW PO SCH ×2 (08:00→12:03)
[2022-04-22] MEDS: LABETALOL HCL 200 MG TAB PO SCH ×2 (08:01→12:04)
--- NOTE | 2022-04-22 08:02 | Obstetrical Progress Note ---
Date of Service April 22, 2022 Assessment & Plan (1) Encounter for care and examination after delivery: Plan: - Feels well today. Eating well, voiding well, ambulating well. - Pain well controlled - Routine care -- OOB, ambulation, diet progression as tolerated - After discharge will follow up with Dr. Aranda for BP check. (2) Severe pre-eclampsia: Plan Increased Labetalol to TID. Patient's pressures are improved on 200mg labetalol TID. She has no s/s of pet. Doing well postop day 3. Continued routine care. If BP remains stable. Will continue to monitor during the day and she can be discharged this afternoon is BP remains stable. Magnesium 4.8 Admission and Anticipated Discharge Date Admission Date: April 19, 2022 Supervising Physician Co-Signing Physician Notes Resident Physician Supervision Note: I interviewed and examined the patient. Discussed with Dr. Savage and agree with findings and plan as documented in the note. Any exceptions or clarifications are listed here: Overall the patient is doing very well. Switched to TID labetalol dosing overnight, and pressures were pretty good. IN am it was elevated but I suspect mostly from anxiety. The patient admits she gets very nervous with her pressures being taken. IN fact her repeat pressure this am was higher than the original pressure. This was before her am dose of labetalol. She has no s/s of pet and her labs have all been normal. I believe it is in the patient's best interest to be d/c to home where she will be more relaxed. She plans on purchasing a blood pressure cuff and checking her pressures at home. To call if sbp >160, dbp>100. Will take meds tid. s/s of pet were reviewed in detail and she is to call with any concerns. Will f/u in the office on for a check. I discussed this plan with the oncoming md Dr. Peraza. Nursing will call blood pressures to her for review prior to d/c today. Documented By: Deborah Aranda MD, FACOG Subjective Nancie is a 37 y/o female who is POD #3 following delivery at 37 weeks. She reports feeling well overall this morning. 4/10 pain well managed on analgesics. Tolerating meals overnight and able to ambulate some. Passing gas and has had a bowel movement. Has some persistent lochia with some improvement this morning. Currently breast feeding. Ambulation: ambulating normally Voiding: no voiding problems Passing Gas: Yes Diet Tolerance: regular diet (no n/v) Lochia: Small (dark red) Feeding Type: breast feeding Patient noting continued cramping of the uterus, taking Motrin with no problem. Patient denies s/s of pet. Had a BUSTAMANTE last night that went away with Percocet. Denies any change in vision with the BUSTAMANTE. She is currently on 200mg labatolol TID and pressures continue to improve. 144/86, h/h stable. Review of Systems Review of Systems: Denies fever, chills, sweats Denies shortness of breath, difficulty breathing, chest pain, palpitations, chest pressure. Denies breast pain. Denies dysuria. Denies headache or changes in vision. Physical Exam Physical Exam: General: Alert, oriented. No acute distress. Cardiac: Regular rate and rhythm, no murmurs/rubs/gallops. Respiratory: Clear to auscultation bilaterally a/p, no wheezes/rales/rhonchi. No increased work of breathing. Symmetrical chest rise. No respiratory distress. Abdomen: Soft, nontender, nondistended. Bowel sounds present. Uterus: Uterine fundus firm, palpable 2 cm below umbilicus. Surgical scar clean and healing well. Lower Extremities: Slight LE pitting edema. No deep calf pain. Buddy's negative bilaterally. Results & Data ([facility]) Vital Signs (Past 12 Hours) Vital Signs Temp Pulse Resp BP Pulse Ox O2 Del Method 04/22/22 07:31 36.8 C 70 16 97 Room Air 04/22/22 02:26 144/86 H 04/21/22 22:45 36.9 C 82 16 134/83 96 Room Air Resident Activity Tracking Resident Involvement: Resident Care Provided Care Provided: OB Delivery
--- NOTE | 2022-04-23 20:33 | Discharge Summary (DS) ---
DATE OF ADMISSION: . DATE OF DISCHARGE: 04/22/2022 ADMISSION DIAGNOSES: 1. Intrauterine at 37 and 4/7 weeks. 2. Previous section with thin lower uterine segment. 3. Supervision of elderly multigravida. HISTORY: The patient is a 37-year-old white female with intrauterine at 37 and 4/7 weeks w ho presents to labor and delivery for repeat section, has an early repeat because of physici an concerned at her last delivery of a thin lower uterine segment and recommended to be delivered philly und 37 weeks. This was confirmed by an evaluation of MFM in this . Her has been essentially uncomplicated. For the rest of the patient's detailed history and physical, please see h er history and physical. ASSESSMENT: This is a patient who has a history of a thin lower uterine segment at her previous cesa rean section with recommendation for section after 37 completed weeks. HOSPITAL COURSE: When the patient first was admitted prior to her section, she had some sli ghtly elevated blood pressures as high as 165/90. She was completely asymptomatic and just noted lillian t she was extremely anxious about what was going on. She had labs, which were all negative. She the n underwent a repeat lower transverse section to deliver a viable female infant with Apgars of 8 and 9. Normal uterus, tubes and ovaries were noted bilaterally. The lower uterine segment was thin, but was able to repair in 2 layers. It was not bulging and there was no window. Estimated blo od loss was 400 mL. The patient's postoperative course was unfortunately complicated by severe range blood pressures. She continued to deny any signs and symptoms of preeclampsia. She needed to be lolly ated with labetalol and was started on magnesium sulfate prophylaxis. These pressures were 170/106 a nd 166/97. The patient was treated with magnesium sulfate prophylaxis for 12 hours. The ordering ph ysician felt that she had had significant diuresis and significant improvement in blood pressures and only required 12 hours of therapy. She had nearly 5 liters of urine output out in that 12 hours. S he denies signs and symptoms of preeclampsia and labs that were normal. Unfortunately, the patient's course was complicated by very labile blood pressures. She w as started on labetalol 100 mg b.i.d., was increased to 200 mg b.i.d. and then was eventually increas ed to 200 mg t.i.d. On her last day, her pressures ran in the 140s-150s/90s. When you would sit her and rest her for 5 minutes in anticipation of a blood pressure being taken, it would be elevated. It was my belief that the patient's pressures were elevated significantly because of anxiety. Overnight , her pressures were significantly improved. She has pressures as low as 129/82. She continued to b e asymptomatic as far as signs and symptoms of preeclampsia. Decision was made to discharge home van alvarez we felt that her pressures were more reflective of her anxiety than any actual real disease. The signs and symptoms of preeclampsia were clearly discussed with the patient and she was to call if atul oates had any concerns or issues. She will follow up in the office for blood pressure check. S he was sent home on labetalol 200 mg t.i.d. Her discharge H and H was 12.0 and 36.1. Job ID: [id number]
== END 2022-04-22 12:45 | disposition home or self-care (01) | DRG 786 ==
LOC: 4S1 05:35 → EDSTATUS 09:00 → 4E2 11:03 → 4S1 17:35 → 4E2 04-20 09:57